=== PATIENT | male | born 1985 | race Caucasian/White ===

== ENCOUNTER 2020-05-12 19:18 | Emergency (ER) | payer OTHER ==
[2020-05-12] MEDS ORDERED: Prochlorperazine 10 MG/2 ML SDV IVPUSH ONE (20:16)
[2020-05-12] MEDS ORDERED: Sodium Chloride 0.9% 10 ML Syringe FLUSH PRN (20:16)
[2020-05-12] MEDS ORDERED: Ketorolac 30 MG/ML SDV IVPUSH ONE (20:16)
[2020-05-12] MEDS ORDERED: diphenhydrAMINE 50 MG/ML SDV IVPUSH ONE (20:17)
[2020-05-12] MEDS ORDERED: Sodium Chloride 0.9% 1,000 ML IV ONE (20:17)
--- NOTE | 2020-05-12 20:19 | EDM.PDOC ---
ED HPI GENERAL MEDICAL PROBLEM - General Chief Complaint: Headache Stated Complaint: MIGRAINE/PAST OUT Time Seen by Provider: 05/12/20 20:15 Source of Information: Reports: Patient History Limitations: Reports: Physical Impairment - History of Present Illness INITIAL COMMENTS - FREE TEXT/NARRATIVE: Patient presents because of almost 1 month of persistent headache symptoms felt to be migraine-like. This gentleman is visiting the area from [place], [place] to be fishing tournament. Since roughly the first part of April he has noticed headaches that are present primarily at the base of the skull in the back area. Nothing seems to make the headache better. He has had some times where headache symptoms will decrease but over the last 3 days he has had virtually continuous symptoms. He was seen in April for symptoms and followed up with his primary care team 1 week ago in [place]. He received a prescription for Maxalt which has helped symptoms sometimes but not at others. His headache pain worsened to 10 out of 10 and it was intractable. He has had pain severe enough that he had a syncopal episode earlier this evening. After arrival here, he had an emesis and felt slightly better afterwards. He denies any other recent illness. No medications. No one else ill around him. Onset: Gradual Onset Date: 04/06/20 Duration: Week(s): Location: Reports: Head, Neck Quality: Reports: Ache, Throbbing Severity: Severe Improves with: Reports: None Worsens with: Reports: Movement Associated Symptoms: Reports: Headaches, Nausea/Vomiting, Syncope Headache Pain Score (Numeric/FACES): 10 - Related Data Allergies Allergy/AdvReac Type Severity Reaction Status Date / Time No Known Allergies Allergy Verified 05/12/20 19:31 Home Meds: Home Meds Rizatriptan [Maxalt [employer]] 10 mg PO ASDIRECTED PRN 05/12/20 [History] ondansetron HCL [Zofran] 4 mg PO DAILY 05/12/20 [History] Past Medical History Neurological History: Reports: Migraines Social & Family History - Tobacco Use Smoking Status *Q: Former Smoker Used Tobacco, but Quit: Yes Month/Year Tobacco Last Used: 3 months - Caffeine Use Caffeine Use: Reports: Coffee, Energy Drinks, Soda - Recreational Drug Use Recreational Drug Use: No ED ROS GENERAL - Review of Systems Review Of Systems: See Below Constitutional: Reports: Malaise, Weakness. Denies: Night Sweats, Diaphoresis HEENT: Reports: No Symptoms Respiratory: Reports: No Symptoms Cardiovascular: Reports: No Symptoms GI/Abdominal: Reports: No Symptoms : Reports: No Symptoms Neurological: Reports: Headache, Syncope, Difficulty Walking Psychiatric: Reports: No Symptoms - Physical Exam Exam: See Below Exam Limited By: Physical Impairment General Appearance: Severe Distress Eye Exam: Bilateral Eye: EOMI Nose: Normal Inspection Head Exam: Atraumatic Neck: Tender Midline (The posterior mid to upper cervical muscles are tender to palpation. Also tender along the base of the skull in the posterior region.) Respiratory/Chest: No Respiratory Distress Cardiovascular: Bradycardia GI/Abdominal: Soft, Non-Tender Neuro Exam (Abbreviated): No Motor/Sensory Deficits Back Exam: Normal Inspection Course - Vital Signs Last Recorded V/S: Last Vital Signs Temp 36.1 C 05/12/20 19:36 Pulse 53 L 05/12/20 22:12 Resp 14 05/12/20 22:12 BP 119/63 05/12/20 22:12 Pulse Ox 100 05/12/20 22:12 - Orders/Labs/Meds Orders: Active Orders 24 hr Category Date Time Status Sodium Chloride 0.9% [Saline Flush] Med 05/12/20 20:16 Ordered 10 ml FLUSH ASDIRECTED PRN Saline Lock Insert [OM.PC] Routine Oth 05/12/20 20:16 Ordered Medication Orders Sodium Chloride (Saline Flush) 10 ml FLUSH ASDIRECTED PRN PRN Reason: Keep Vein Open Last Admin: 05/12/20 20:29 Dose: 10 ml Documented by: Labs: Laboratory Tests 05/12/20 05/12/20 Range/Units 20:26 20:26 WBC 15.8 H (4.5-11.0) K/uL RBC 5.61 (4.30-5.90) M/uL Hgb 17.6 H (12.0-15.0) g/dL Hct 49.6 (40.0-54.0) % MCV 88 (80-98) fL MCH 31 (27-31) pg MCHC 36 (32-36) % Plt Count 271 (150-400) K/uL Neut % (Auto) 81 H (36-66) % Lymph % (Auto) 14 L (24-44) % [place] % (Auto) 5 (2-6) % Eos % (Auto) 0 L (2-4) % Baso % (Auto) 0 (0-1) % Sodium 136 L (140-148) mmol/L Potassium 3.7 (3.6-5.2) mmol/L Chloride 100 (100-108) mmol/L Carbon Dioxide 28 (21-32) mmol/L Anion Gap 11.7 (5.0-14.0) mmol/L BUN 18 (7-18) mg/dL Creatinine 1.2 (0.8-1.3) mg/dL Est Cr Clr Drug Dosing 93.25 mL/min Estimated GFR (MDRD) > 60 (>60) Glucose 117 H (74-106) mg/dL Calcium 8.9 (8.5-10.1) mg/dL Total Bilirubin 0.8 (0.2-1.0) mg/dL AST 14 L (15-37) U/L ALT 29 (12-78) U/L Alkaline Phosphatase 76 (46-116) U/L C-Reactive Protein 0.13 (0.0-0.3) mg/dL Total Protein 7.5 (6.4-8.2) g/dL Albumin 3.9 (3.4-5.0) g/dL Globulin 3.6 H (2.3-3.5) g/dL Albumin/Globulin Ratio 1.1 L (1.2-2.2) Meds: Medications Generic Name Dose Route Start Last Admin Trade Name Yuriq PRN Reason Stop Dose Admin Sodium Chloride 10 ml 05/12/20 20:16 05/12/20 20:29 Saline Flush FLUSH 10 ml ASDIRECTED PRN Administration Keep Vein Open Discontinued Medications Generic Name Dose Route Start Last Admin Trade Name Susana PRN Reason Stop Dose Admin Dexamethasone 8 mg 05/12/20 22:56 05/12/20 23:03 Dexamethasone IVPUSH 05/12/20 22:57 8 mg ONETIME ONE Administration Diphenhydramine HCl 25 mg 05/12/20 20:17 05/12/20 20:58 Benadryl IVPUSH 05/12/20 20:18 25 mg ONETIME ONE Administration Hydromorphone HCl 0.5 mg 05/12/20 21:36 05/12/20 22:17 Dilaudid IVPUSH 05/12/20 21:37 0.5 mg ONETIME ONE Administration Hydromorphone HCl 1 mg 05/12/20 22:40 Dilaudid IVPUSH 05/12/20 22:41 ONETIME ONE Sodium Chloride 1,000 mls @ 999 mls/hr 05/12/20 20:17 05/12/20 20:29 Normal Saline IV 05/12/20 21:17 999 mls/hr .BOLUS ONE Administration Levetiracetam 1,500 mg/ Sodium 115 mls @ 400 mls/hr 05/12/20 21:35 05/12/20 22:20 Chloride IV 05/12/20 21:49 400 mls/hr ONETIME ONE Administration Ketorolac Tromethamine 30 mg 05/12/20 20:16 05/12/20 20:55 Toradol IVPUSH 05/12/20 20:17 30 mg ONETIME ONE Administration Prochlorperazine Edisylate 10 mg 05/12/20 20:16 05/12/20 20:30 Compazine IVPUSH 05/12/20 20:17 10 mg ONETIME ONE Administration - Re-Assessments/Exams Free Text/Narrative Re-Assessment/Exam: 05/12/20 23:46 Patient will be given Toradol 30 mg, Compazine 10 mg, Benadryl 25 mg, all IV doses, for headache symptoms. Given his age and description of symptoms this does not sound like a migraine headache condition. A noncontrast head CT scan was ordered. Later, the patient's nausea was better headache pain has decreased only slightly to around a 7. He received a total of 1.5 mg of hydromorphone over an hour or so and headache symptoms were substantially better. CT scan finalized showing a left posterior fossa mass causing mass-effect and compression of ventricles with hydrocephalus effect. This was discussed with the patient. He will need transfer to a nearby facility for initial evaluation and likely decompression of his intracranial system. Prior to finalization of the CT scan results, he was loaded with 1500 mg of Keppra. He later received dexamethasone 8 mg IV. I contacted [facility] in [place] and spoke with Dr. Emmanuel, the neurosurgeon on-call. The patient cannot readily or safely return home to [place] at this time because of the seriousness of his symptoms. Dr. Emmanuel accepts him in transfer at and on arrival will likely place a ventricular catheter to relieve pressure in the brain. He will also likely require additional procedures in the near term. He continues to be bradycardic with heart rate in the low 50s. The patient was improved in comfort at time of transfer, which will be by ground ambulance. 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, Bradycardia Headache Qualifiers: Headache type: new daily persistent Qualified Code(s): G44.52 - New daily persistent headache (NDPH) Nausea & vomiting Qualifiers: Vomiting type: unspecified Vomiting Intractability: non-intractable Qualified Code(s): R11.2 - Nausea with vomiting, unspecified - Discharge Information Referrals: PCP,None [Primary Care Provider] - Forms: ED Department Discharge Sepsis Event Note (ED) - Evaluation Sepsis Screening Result: No Definite Risk - Focused Exam Vital Signs: Vital Signs Temp Pulse Resp BP Pulse Ox 05/12/20 22:12 53 L 14 119/63 100 05/12/20 20:55 64 14 114/68 97 05/12/20 19:36 36.1 C 52 L 14 114/68 98 05/12/20 19:28 36.1 C 52 L 14 114/68 98 - My Orders Last 24 Hours: My Active Orders 05/12/20 20:16 Sodium Chloride 0.9% [Saline Flush] 10 ml FLUSH ASDIRECTED PRN Saline Lock Insert [OM.PC] Routine - Assessment/Plan Last 24 Hours: My Active Orders 05/12/20 20:16 Sodium Chloride 0.9% [Saline Flush] 10 ml FLUSH ASDIRECTED PRN Saline Lock Insert [OM.PC] Routine
--- NOTE | 2020-05-12 21:20 | CRLCT ---
INDICATION: headache x [address] HEAD WITHOUT CONTRAST TECHNIQUE: Multiple axial CT images were performed through the head without intravenous contrast administration. COMPARISON: No previous studies are currently available for comparison. FINDINGS: There is a poorly defined and heterogeneous intra-axial mass in the inferior left posterior fossa, measuring approximately 4.2 x 3.2 x 3.3 centimeters. The mass has a dominant solid component and a probable cystic component. It is surrounded by hypodense vasogenic edema involving the left cerebellum. The lesion produces mass effect, with compression of the 4th ventricle. The lateral and 3rd ventricles are prominent in size for the patient`s age, likely reflecting mild obstructive hydrocephalus. No acute intracranial hemorrhage is identified. Supratentorial brain parenchyma appears normal with unremarkable celis-white differentiation. Osseous structures are within normal limits and no fractures are seen. Included portions of the paranasal sinuses and mastoid air cells are normally aerated. IMPRESSION: Left posterior fossa 4.2 x 3.2 x 3.3 centimeter mass as detailed above, likely representing neoplasm. Associated probable mild hydrocephalus. Further evaluation with head MRI with contrast is recommended. Results were called to [facility]AN[facility] for Dr. Julio at 9:10 p.m. on 05/12/2020. HANS MONCADA MD [employer] Dictated by Loob Moncada MD @ 05/12/2020 9:17:29 PM Dictated by: Lobo Moncada MD @ 05/12/2020 21:19:17 (Electronically Signed)
[2020-05-12] MEDS ORDERED: levETIRAcetam 1,500 MG in Sodium Chloride 0.9% 100 ML IV ONE (21:35)
[2020-05-12] MEDS ORDERED: HYDROmorphone 0.5 MG/0.5 ML Syringe IVPUSH ONE (21:36)
[2020-05-12] MEDS ORDERED: HYDROmorphone 1 MG/ML Syringe IVPUSH ONE (22:40)
[2020-05-12] MEDS ORDERED: Dexamethasone 4 MG/ML SDV IVPUSH ONE (22:56)
== END 2020-05-13 00:06 ==
LOC: JP.ED 19:18
DX: C71.9 Malignant neoplasm of brain, unspecified (principal); R00.1 Bradycardia, unspecified; Z87.891 Personal history of nicotine dependence
CPT/HCPCS: 36415; 70450; 80053; 85025; 86140; 96361; 96365; 96375; 96376; 99285; J0780; J1100; J1170; J1200; J1885; J1953; J7030